=== PATIENT | female | born 1980 | race Caucasian/White ===

== ENCOUNTER 2017-10-16 21:14 | Inpatient (IN) | payer OTHER ==
[~2017-10-16] VITALS: Ht 170.2 cm; Wt 71.2 kg
[~2017-10-16 21:14] MED LIST: CLCC1250 PO; DOCU-94; MTR600X PO; MULT-506 PO
[2017-10-22] MEDS ORDERED: LACTATED RINGER'S 1000ML 1,000 ML IV PRN (16:20)
[2017-10-22 16:40] LABS: HEMATOCRIT 34.6 % (37-47); HEMOGLOBIN 11.7 g/dL (12.0-16.0); MEAN CELL VOLUME 86.3 fL (80-100); MEAN CORPUSCULAR HEMOGLOBIN 29.2 pg (25-34); MEAN CORPUSCULAR HGB CONC 33.8 g/dl (32-36); MEAN PLATELET VOLUME 11.6 fL (7.4-10.4); PLATELET COUNT 181 K/uL (130-400); RED CELL DISTRIBUTION WIDTH CV 13.3 % (11.5-14.5); RED CELL DISTRIBUTION WIDTH SD 41.8 fL (36.4-46.3); WHITE BLOOD COUNT 9.84 K/uL (4.8-10.8)
[2017-10-22] MEDS ORDERED: LACTATED RINGER'S 1000ML 500 ML IV PRN ×3 (16:48→22:07)
[2017-10-22] MEDS ORDERED: OXYTOCIN 30 UNITS/500ML NSS IV PRN ×3 (17:00→23:00)
[2017-10-22 17:05] VITALS: Ht 170.2 cm; Wt 71.2 kg
[2017-10-22] MEDS: LACTATED RINGER'S 1000ML 1,000 ML IV SCH ×2 (17:17→21:06)
[2017-10-22] MEDS ORDERED: EpHEDrine SULFATE INJ 50 MG/ML AMP ONE (21:00)
[2017-10-22] MEDS ORDERED: BUPIVACAINE 0.25% 30 ML VIAL ONE (21:00)
[2017-10-22] MEDS ORDERED: FENTANYL 2MCG/ML ROPIV 1.25MG/ML 100ML BAG EPI ONE (21:00)
[2017-10-22] MEDS ORDERED: FENTANYL CITRATE INJ 50 MCG/1 ML 2 ML VIAL ONE (21:01)
[2017-10-22] MEDS ORDERED: NALOXONE HCL INJ 1 MG in SODIUM CHLORIDE 0.9% 1000ML 1,000 ML IV PRN (22:07)
[2017-10-22] MEDS ORDERED: NALBUPHINE HCL INJ 10 MG/ML 1ML AMP IV PRN (22:15)
[2017-10-22] MEDS ORDERED: EpHEDrine SULFATE INJ 50 MG/ML AMP IV PRN (22:15)
[2017-10-22] MEDS ORDERED: FENTANYL 2MCG/ML ROPIV 1.25MG/ML 100ML BAG EPI PRN (22:15)
[2017-10-22] MEDS ORDERED: DiphenhydrAMINE HCL 50 MG/ML VIAL IV PRN (22:15)
[2017-10-22] MEDS ORDERED: ONDANSETRON INJ 2 MG/ML 2 ML VIAL IV PRN (22:15)
[2017-10-22] MEDS ORDERED: NALOXONE HCL 0.4 MG/1 ML VIAL/CARP IV PRN (22:15)
[2017-10-22] MEDS ORDERED: BENZOCAINE 20% AER SPR 82.5 GM CAN EXT PRN (23:00)
[2017-10-22] MEDS ORDERED: HYDROCORTISONE ACETATE 25 MG SUPP PR PRN (23:00)
[2017-10-22] MEDS ORDERED: OXYCODONE/ACETAMINOPHEN 5-325 TAB PO PRN (23:00)
[2017-10-22] MEDS ORDERED: ACETAMINOPHEN 325 MG TAB PO PRN (23:00)
[2017-10-22] MEDS ORDERED: DIPHTHERIA/TETANUS/PERTUSSIS 0.5 ML SYR/VIAL IM. ONE (23:00)
[2017-10-22] MEDS ORDERED: SUPERCREAM 0.870 % 15GM JAR EXT PRN (23:00)
[2017-10-22] MEDS ORDERED: LANOLIN OINT EXT PRN (23:00)
[2017-10-23] VITALS (7 sets, daily range): BP systolic 104–121; BP diastolic 57–75; PULSE 65–82; TEMP 36.4–36.7; O2SAT 94–96
--- NOTE | 2017-10-23 00:40 | DELIVERY SUMMARY ---
DATE OF OPERATION: 10/22/2017 TIME OF DELIVERY: 2247 DELIVERY OF PLACENTA: 2250 DELIVERY NOTE: The patient is a 37-year-old 2 para 1 at 40 weeks and 6 days gestation, who was admitted to labor and delivery on the morning of 10/22/2017, for a scheduled induction of labor secondary to postdates. She received oxytocin per protocol for induction. She received an epidural for anesthesia. Spontaneous rupture of membranes was noted at 2030. She reached complete dilation at 2235. She pushed to delivery at 2248, she delivered a viable male in the right occiput anterior position to an intact perineum. The baby was delivered and placed on patient's abdomen. Cord was clamped x2 and cut. Delayed cord clamping was performed. Apgars were 9 at one minute and 9 at five minutes. Cord blood was then obtained and an intact placenta with 3-vessel cord was delivered at 2250. Oxytocin infusion was then begun. The lower uterine segment and vagina were cleared of any blood clot and debris. Exploration of perineum noted no lacerations. All sponge and instrument counts found to be correct x2. Estimated blood loss was 250 mL. Both patient and baby tolerated the delivery well and were in recovery with stable vital signs. I attest to the content of the Intraoperative Record and any orders documented therein. Any exception s are noted below.
--- NOTE | 2017-10-23 00:43 | Anesthesia Procedure Note ---
Anesthesia Epidural Removal Nt Date & Time Oct 23, 2017 at 00:42 Vital Signs Pain Intensity: 0.0 Notes Mental Status: alert / awake / arousable, participated in evaluation Nausea / Vomiting: adequately controlled Pain: adequately controlled Airway Patency, RR, SpO2: stable & adequate BP & HR: stable & adequate Hydration State: stable & adequate Neuraxial Anesthesia: was administered Anesthetic Complications: no major complications apparent, pt satisfied with anesthetic care Epidural: removed without complications, with tip intact
--- NOTE | 2017-10-23 01:55 | NUR ---
Pt arrived to room with infant and . Pt oriented to room and call hung system. Admission papers gone over with pt.
[2017-10-23] MEDS: IBUPROFEN 600 MG TAB PO PRN ×3 (06:43→21:17)
[2017-10-23 07:12] LABS: HEMATOCRIT 32.5 % (37-47); HEMOGLOBIN 10.8 g/dL (12.0-16.0)
--- NOTE | 2017-10-23 07:55 | OB/GYN Progress Note ---
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 Patient is seen and examined. She feels well, no complaints. Ambulating without dizziness Voiding without difficulty Tolerating regular diet with out N&V Bleeding is minimal No fever/ chills/ CP/ SOB/ N&V/ Leg pain Breast feeding without problems Date Time Temp Pulse Resp B/P (MAP) Pulse Ox O2 Delivery O2 Flow Rate FiO2 10/23/17 04:10 36.5 65 18 106/60 (75) 96 Room Air 10/23/17 02:00 36.6 71 18 120/75 (90) 95 Room Air 10/23/17 02:00 95 Room Air Last 24 Hours Test 10/22/17 16:31 10/23/17 06:23 White Blood Count 9.84 K/uL Red Blood Count 4.01 M/uL Hemoglobin 11.7 g/dL 10.8 g/dL Hematocrit 34.6 % 32.5 % Mean Corpuscular Volume 86.3 fL Mean Corpuscular Hemoglobin 29.2 pg Mean Corpuscular Hemoglobin Concent 33.8 g/dl RDW Standard Deviation 41.8 fL RDW Coefficient of Variation 13.3 % Platelet Count 181 K/uL Mean Platelet Volume 11.6 fL PE: General: Alert, orientedx3, NAD Abd: soft, NT, fundus firm, below Umbilicus Perineum intact, Lochia rubra minimal Ext; NT, no edema AP: 37 yo s/p , ppd# 1 VSS Afebrile doing well Continue routine care All questions were answered D/C home tomorrow
[2017-10-23] MEDS: DOCUSATE SODIUM 100 MG CAP PO SCH ×2 (08:28→19:19)
[2017-10-23] MEDS: FERROUS SULFATE 325 MG TAB PO SCH (08:28)
[2017-10-23] MEDS: PRENATAL VITAMIN TAB PO SCH (08:28)
[2017-10-23] MEDS ORDERED: BISACODYL 5 MG TABEC PO SCH (20:00)
[2017-10-24] MEDS: IBUPROFEN 600 MG TAB PO PRN ×3 (02:40→13:26)
[2017-10-24] MEDS ORDERED: BISACODYL 10 MG SUPP PR PRN (07:00)
[2017-10-24 07:28] LABS: HEMATOCRIT 32.3 % (37-47); HEMOGLOBIN 10.8 g/dL (12.0-16.0); MEAN CORPUSCULAR HEMOGLOBIN 29.4 pg (25-34); MEAN CORPUSCULAR HGB CONC 33.4 g/dl (32-36); MEAN PLATELET VOLUME 11.7 fL (7.4-10.4); PLATELET COUNT 156 K/uL (130-400); RED CELL DISTRIBUTION WIDTH CV 13.5 % (11.5-14.5); RED CELL DISTRIBUTION WIDTH SD 43.5 fL (36.4-46.3)
[2017-10-24 07:35] VITALS: BP 118/70; PULSE 68; TEMP 36.5; O2SAT 95
[2017-10-24] MEDS: DOCUSATE SODIUM 100 MG CAP PO SCH (07:57)
[2017-10-24] MEDS: PRENATAL VITAMIN TAB PO SCH (07:57)
[2017-10-24] MEDS: FERROUS SULFATE 325 MG TAB PO SCH (07:57)
--- NOTE | 2017-10-24 10:33 | OB/GYN Progress Note ---
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 Subjective conversation w/ patient, physical exam Ambulation: ambulating normally Voiding: no voiding problems Passing Gas: Yes Diet Tolerance: Regular Diet Lochia: Moderate Review of Systems Constitutional: No fever, No chills, No sweats, No weight loss, No weakness, No fatigue, No problem reported Respiratory: No cough, No sputum, No wheezing, No shortness of breath, No dyspnea on exertion, No dyspnea at rest, No hemoptysis, No problem reported Cardiac: No chest pain, No orthopnea, No PND, No edema, No claudication, No palpitations, No problem reported Breast: No see HPI, No breast lump, No change in shape, No nipple discharge, No breast pain, No problem reported Abdomen: No pain, No nausea, No vomiting, No diarrhea, No constipation, No GI bleeding, No problem reported Female : No see HPI, No dysuria, No urinary frequency, No hematuria, No incontinence, No abnormal vaginal bleeding, No vaginal discharge, No problem reported Objective Vital Signs Date Time Temp Pulse Resp B/P (MAP) Pulse Ox O2 Delivery O2 Flow Rate FiO2 10/24/17 07:35 36.5 68 18 118/70 (86) 95 Room Air 10/24/17 07:35 95 Room Air 10/23/17 23:50 36.5 82 16 104/59 (74) Room Air 10/23/17 23:50 Room Air 10/23/17 19:25 36.5 81 18 121/72 (88) Room Air 10/23/17 15:30 36.6 66 18 104/57 (73) Room Air 10/23/17 15:30 Room Air 10/23/17 13:25 36.7 75 18 109/67 (81) 94 Room Air Physical Exam General Appearance: WELL-APPEARING, WD/WN, NO APPARENT DISTRESS Respiratory/Chest: chest non-tender, lungs clear, normal breath sounds Cardiovascular: regular rate, rhythm, no edema, no gallop Abdomen: normal bowel sounds, non tender, soft Fundus: Firm Extremities: normal range of motion, non-tender, normal inspection Laboratory Results Last 24 Hours Test 10/24/17 06:51 White Blood Count 9.20 K/uL Red Blood Count 3.67 M/uL Hemoglobin 10.8 g/dL Hematocrit 32.3 % Mean Corpuscular Volume 88.0 fL Mean Corpuscular Hemoglobin 29.4 pg Mean Corpuscular Hemoglobin Concent 33.4 g/dl RDW Standard Deviation 43.5 fL RDW Coefficient of Variation 13.5 % Platelet Count 156 K/uL Mean Platelet Volume 11.7 fL Assessment and Plan Day Number: 2 Continue Routine Care: VD day #2 Pt doing well No complaints dsich home with instructions
[2017-10-24] MEDS ORDERED: MTR600X PO (10:34)
--- NOTE | 2017-10-24 10:35 | Discharge Instructions ---
Discharge Instructions Date of Service Oct 24, 2017. Admission Reason for Admission: Induction Discharge Discharge Diagnosis / Problem: Discharge Goals Goal(s): Routine recovery after delivery Activity Recommendations Activity Limitations: as noted below ACTIVITY RECOMMENDATIONS: * Gradual return to full activity over the next 2-3 weeks. * No lifting - nothing heavier than baby over the next 2-3 weeks. * Do not engage in vigorous exercise, sexual activity or sports until cleared by your physician. * Do not drive or operate any motorized equipment until cleared by your physician. * You may shower/bathe daily. BREAST CARE: If you are not breast feeding: * Wear a supportive bra 24 hours a day for one to two weeks. * Avoid stimulating your breasts and nipples as much as possible during the first few weeks after delivery. * When taking a shower, have the warm water hit your back, not breasts. * When your breasts feel full, apply ice packs. Usually three to four times a day helps ease the discomfort. * Take a mild pain medication (Tylenol/Motrin) when you are uncomfortable. If breast feeding: * Use breast milk to lubricate nipples. Lansinoh cream may be used for sore nipples. You do not need to remove cream prior to breast feeding. If using a different brand of cream, check the label for directions regarding removal of cream prior to nursing. * Wear a supportive bra. * If having problems with breasts or breast feeding, call a transportation consultant or your health care provider. EPISIOTOMY CARE: After delivery, if you have an episiotomy (stitches), the following steps will ease discomfort and aid healing. * For the first 24 hours after delivery, place ice packs next to your episiotomy to help reduce swelling. * After the first 24 hour-period, sitz baths, either portable or in the tub, are suggested. A shower with a shower arm sprayed over the episiotomy may be comforting. * Dianne care should be done after each voiding and bowel movement. Squirt warm water from a plastic bottle over the perineum (region of the body between the anus and urinary opening) and pat dry. * Use Dermoplast to ease discomfort. Shake container. [place] directly over the episiotomy. * Place a Tucks on a clean sanitary pad next to your episiotomy. OVER THE COUNTER MEDICATION: * For discomfort or pain, you may use Acetaminophen (Tylenol), Ibuprofen (Advil ), or Naproxen (Aleve) following the package directions. * For constipation you may use Colace following the package directions. SPECIAL CARE INSTRUCTIONS: When you are discharged from the hospital, it is important for you to follow the instructions listed below: * During the first week at home, you should be able to care for yourself and your baby. In addition, the usual light household activities are encouraged. * Limit your activities to the way you feel. Do not try to clean the house or move furniture. Be sensible. * If you actively engage in sports and have done so up until the time of your delivery, you may resume these activities as soon as you feel able. This may take up to one month or even longer. Use good judgment. * Continue to take your vitamins for at least six weeks after the of your baby. * Your diet need not be limited unless you were on a special diet before your delivery. Breast-feeding mothers need around 2500 calories per day and at least 64-80 ounces of fluid per day (8 to 10 glasses). * You should eat foods from the four major food groups. Crash diets or fad diets are to be avoided. Eating lean meats, fresh fruits and vegetables, low-fat dairy products, high fiber foods and a regular exercise program, will help you get back to your pre- weight without putting your health at risk. * Constipation is sometimes a problem after delivery. Take a mild laxative as needed. If breast feeding, Milk of Magnesia is acceptable to use. You may use a suppository or Fleets enema if no episiotomy. * A daily shower or tub bath is suggested. Be sure to thoroughly and gently dry the perineum. * A bloody vaginal discharge will usually continue until around four weeks post . A small amount of bleeding may continue for as long as six weeks. Vaginal discharge changes from the bright red bleeding after delivery to pink then brownish and finally yellowish-pink before becoming white and disappearing. * Bleeding may increase with activity. Your first period may come in 4-8 weeks. If you are breast feeding, your period may be delayed even longer. * [place] (sex) can begin whenever both you and your partner feel comfortable and do not have any form of genital infection. It is recommended that you wait until after your return appointment and discuss with your physician. If you have questions, please talk to your health care practitioner. A condom should be used to prevent infection and . * Foreplay, gentle intercourse and lubrication is very important the first several times to prevent pain. A water-based lubricant such as K-Y jelly or Astroglide may be used. * Tampons may be used six weeks after delivery. * Douching should be avoided for 6 weeks after delivery. * If you have RH negative blood and your baby is RH positive, you will receive RHOGAM by injection prior to discharge. The nurse will give you a card to keep with you that has the date and place that you received RHOGAM after delivery. * During your care, you had a Rubella screen done to check for the presence of rubella antibodies in your blood. If your test was negative, you will receive a Rubella vaccine prior to discharge. This vaccine may cause a fever, soreness at the injection site and flu-like symptoms. If these symptoms persist, notify your health care practitioner. is not advised for three months after a Rubella vaccine. There is a higher chance of having a baby with defects if conceived within three months of getting the vaccine. * If you were discharged 24 hours from delivery or before 48 hours: Visiting nurses will come to your home 48 hours after discharge to assess you and your baby. The visiting nurse will meet with you while you are in the hospital to arrange a time and get directions to your home. * Verbalizes understanding of car seat law as reviewed with patient nursing. * Car Seat hand-out given and reviewed with patient by nursing. * Shaken baby information reviewed with patient by nursing. Call you doctor if: * Heavy bleeding (saturating several pads an hour) or passing clots the size of your fist. * A fever >101 degrees F (38.3 degrees C) on two occasions four hours apart and/or chills. * Unusual pain in the pelvic or vaginal areas. * "Baby Blues" lasting longer than two weeks. If you have any questions or concerns, call your health care practitioner at . FOLLOW-UP VISIT: * Please call the office at to schedule a 6 week examination. It is important you keep this appointment. * It is important for you to make arrangements for either yearly or twice yearly check-ups thereafter. . Current Hospital Diet Patient's current hospital diet: Gluten Free Diet Discharge Diet Recommended Diet: Regular Diet Pending Studies Studies pending at discharge: no Medical Emergencies . Who to Call and When: Medical Emergencies: If at any time you feel your situation is an emergency, please call 911 immediately. . Non-Emergent Contact Non-Emergency issues call your: Specialist . . "Provider Documentation" section prepared by Daniel Camarillo. . VTE Core Measure Inpt VTE Proph given/why not?: Treatment not indicated
[2017-10-24 13:30] VITALS: BP_DIAS 70; PULSE 68; TEMP 36.5
== END 2017-10-24 14:00 | disposition home or self-care (01) | DRG 775 ==
LOC: C.LD 10-22 15:59 → C.OBG 10-23 01:58
PROVIDERS: ADMIT Obstetrics & Gynecology; ATTEND Obstetrics & Gynecology
PROC: 3E033VJ Introduction of Other Hormone into Peripheral Vein, Percutaneous Approach (ICD-10-PCS; principal; 2017-10-22)
PROC: 10E0XZZ Delivery of Products of Conception, External Approach (ICD-10-PCS; principal; 2017-10-22)
DX: O48.0 Post-term pregnancy (principal); Z3A.40 40 weeks gestation of pregnancy; Z37.0 Single live birth